=== PATIENT | female | born 1940 | race African-American/Black ===

== ENCOUNTER 2021-03-10 08:39 | Outpatient (CLI) | payer MEDICARE ==
[~2021-03-10] VITALS: Ht 165.1 cm; Wt 75.0 kg
[2021-03-10] VITALS (9 sets, daily range): BP systolic 137–165; BP diastolic 71–85
[~2021-03-10 08:39] MED LIST: ASPI-630 PO; CITA10TA5 PO; CLOP75TA PO; FURO20TA3 PO; HYDR12.575 PO; IBUP-1027 PO; LIDOCAINE WITH 8.4% SOD BICARB 3 ML DISP.SYRIN. ONE; LIPITOR80 MG PO; LOSA-73 PO; METO50TA4 PO; SPIR25TA5 PO
[2021-03-10 09:15] LABS: BASO # 0.1 x10^3/uL (0.0-0.2); BASO % 0 % (0-3); EOS # 0.1 x10^3/uL (0.0-0.7); EOS % 1 % (0-3); HEMATOCRIT 30.5 % (36.0-47.0); LYMPH # 1.2 x10^3/uL (1.0-4.8); LYMPH % 7 % (24-48); MEAN CORPUSCULAR HEMOGLOBIN 25 pg (25-35); MEAN CORPUSCULAR HGB CONC 33 g/dL (31-37); MEAN CORPUSCULAR VOLUME 78 fL (79-100); MONO # 2.2 x10^3/uL (0.0-1.1); MONO % 12 % (0-9); NEUT % 81 % (31-73); PLATELET COUNT 437 x10^3/uL (140-400); RED BLOOD COUNT 3.92 x10^6/uL (3.50-5.40); RED CELL DISTRIBUTION WIDTH 16.5 % (11.5-14.5); WHITE BLOOD COUNT 18.6 x10^3/uL (4.0-11.0)
[2021-03-10 09:25] LABS: PROTHROMBIN TIME PATIENT 15.6 SEC (11.7-14.0)
[2021-03-10 09:35] LABS: CALCIUM 9.1 mg/dL (8.5-10.1); CREATININE 0.8 mg/dL (0.6-1.0); GFR 83.7
[2021-03-10 09:52] LABS: % BANDS 2 % (0-9); % LYMPHS 5 % (24-48); % MONOS 7 % (0-10); % SEGS 86 % (35-66); NUCLEATED RBC 1
[2021-03-10 09:53] LABS: PLT ESTIMATE INCREASED (ADEQUATE); POLYCHROMASIA OCCASIONAL; TARGET CELLS FEW
[2021-03-10] MEDS ORDERED: MIDAZOLAM HCL/PF 2 MG/2 ML VIAL. ONE (10:05)
[2021-03-10] MEDS ORDERED: fentaNYL PF VIAL 100 MCG/2 ML VIAL ONE (10:05)
[2021-03-10] MEDS ORDERED: MIDAZOLAM HCL/PF 2 MG/2 ML VIAL. IV ONE (10:30)
[2021-03-10] MEDS ORDERED: LIDOCAINE WITH 8.4% SOD BICARB 3 ML DISP.SYRIN. IJ ONE (10:30)
[2021-03-10] MEDS ORDERED: fentaNYL PF VIAL 100 MCG/2 ML VIAL IV ONE (10:30)
--- NOTE | 2021-03-10 11:47 | RAD ---
EXAM: Chest, single view. HISTORY: Lung biopsy. COMPARISON: CT obtained on the same date FINDINGS: There is a left upper lobe mass with suspected associated postobstructive infiltrate. There is suspected bilateral lower lobe atelectasis. There is a 1.6 cm right lower lobe pulmonary nodule, better characterized on the CT performed on the same date. There is no convincing pneumothorax or ple ural effusion. The heart is normal in size. IMPRESSION: 1. Left upper lobe mass with postobstructive infiltrate. Correlate with pathology findings correspond ing with biopsy of this lesion on the same date. No pneumothorax is seen. 2. Suboptimal evaluation of a known right lower lobe nodule. This better characterized on the CT obta ined on the same date. This can be assessed with PET/CT, if not previously performed. 3. Bilateral lower lobe atelectasis. Electronically signed by: Deyanira Maya MD (03/10/2021 11:45 AM) [id number]
--- NOTE | 2021-03-10 12:18 | NUR ---
Discharge Note: GERALDINE OTERO Discharge instructions and discharge home medications reviewed with patient and a copy given. All questions have been answered and understanding verbalized. The following instructions and handouts were given: adult moderate sedation & lung biopsy Discontinued lines and drains: Peripheral IV intact. Patient discharged to Home or Self Care withFamily Membervia Wheelchair
--- NOTE | 2021-03-10 12:58 | RAD ---
CT-guided biopsy, left upper lobe lung mass INDICATION: Left upper lobe lung mass. Concerning for primary lung cancer versus metastatic disease. History of breast cancer.. Consent: The procedure was explained in its entirety to the patient or the patients designated repres entative by a member of the treatment team, including a discussion of the risks, benefits and commonl y accepted alternatives to the procedure, as well as the expected consequences of no therapy whatsoev er. Discussion of the risks included, but was not limited to, those that are most frequent and thos e that are rare but possibly severe or life-threatening, as well as the possibility of unforeseen com plications. Procedural details: Patient was brought to the CT scanner and placed in the supine position. Procedur es performed. 1% lidocaine was administered for local anesthesia. CT imaging demonstrates a large mas s in the left upper lung eroding to the chest wall, with destructive changes in the involved ribs, an d likely invasion of the deep pectoral musculature. A 17-gauge needle was advanced to the periphery o f the mass and core biopsy samples were obtained. The needle was removed. Manual pressure was held. N o immediate complications were identified. Repeat imaging demonstrates no pneumothorax or other compl ication. Sedation: The procedure was performed under conscious sedation including continuous cardiopulmonary m onitoring via a dedicated sedation nurse. Yupj-ii-iact sedation time:: 14 minutes IMPRESSION: CT-guided biopsy, left upper lung and chest wall mass CT DOSING PQRS STATEMENT: One or more of the following individualized dose reduction techniques were utilized for this examinat ion: 1. Automated exposure control 2. Adjustment of the mA and/or kV according to patient size 3. Use of iterative reconstruction technique Electronically signed by: William Mckeon MD (03/10/2021 12:55 PM) [id number]
--- NOTE | 2021-03-14 17:32 | PATHOLOGY ---
[facility] Accession Number: [id number] . 01 Material submitted: . lung - LEFT LUNG MASS CORE BIOPSY. Modifiers: left . 01 Clinical history: . LEFT LUNG MASS LEFT LUNG BIOPSY . 02 Diagnosis: Lung tissue, left lung mass core biopsy: - SQUAMOUS CELL CARCINOMA, MODERATELY DIFFERENTIATED. SEE COMMENT. (JPM:fritz; 03/13/2021) QMS 03/14/2021 0912 Local . 02 Comment: Sections of the left lung mass core biopsy show extensive replacement of lung parenchyma by a malignant epithelial neoplasm. The malignant cells are present in irregular solid nests and are associated with a reactive desmoplastic stroma. The tumor shows no evidence of acinar formation. The tumor cells have a polygonal shape and possess modest to focally abundant amounts of pale to eosinophilic cytoplasm. The tumor cells possess enlarged, rounded to ovoid nuclei possessing small to focally prominent nucleoli and showing moderate to focal marked nuclear pleomorphism. There are mitotic figures present. There is focal tumor necrosis. A panel of immunoperoxidase stains is obtained on A1 and yields the following results: . CK5/6: Tumor cells positive p40: Tumor cells positive p63: Tumor cells positive Cytokeratin 7: Tumor cells positive TTF-1: Tumor cells negative Napsin A: Tumor cells negative . The morphologic and immunophenotypic findings are supportive of the diagnosis of squamous cell carcinoma, moderately differentiated. The case is also examined by Dr. Urban, who concurs with the diagnosis. The results are reported to Dr. Henry on 03/14/2021 at 9:10 AM. (JPM:fritz; 03/13/2021) . . Special stains performed: Immunoperoxidase stains for p40, p63, CK5/6, CK7, TTF-1 and napsin A on A1 . 02 Electronically signed: . Graham Alba MD, Pathologist NPI- [id number] . 01 Gross description: . The specimen is received in formalin, labeled "Radha Oseguera, left lung bx". Received is a single needle core of pale white to red-brown tissue measuring 1.8 cm in length by 0.1 cm in diameter. The specimen is submitted entirely in A1. ([facility]; 03/10/2021) NRI/NRI 03/10/[address] [place] [address] . 02 Pathologist provided ICD-10: C34.92 . 02 CPT . 137242, [id number], [id number] Specimen Comment: A courtesy copy of this report has been sent to [phone], [phone] Specimen Comment: [id number] Specimen Comment: Report sent to / DR HERNY Performed at: 01 [facility] [address] [facility] [address], [place] [id number] MD Jeff Urban MD Phone: [phone] Performed at: 02 [facility] [address] [place], [place] [id number] MD Graham Alba MD Phone: [phone]
== END 2021-03-10 12:30 | disposition home or self-care (01) ==
LOC: INTRAD 08:39
PROVIDERS: ATTEND Internal Medicine Pulmonary Disease
DX: R91.8 Other nonspecific abnormal finding of lung field (principal); C34.92 Malignant neoplasm of unspecified part of left bronchus or lung; I10 Essential (primary) hypertension; J44.9 Chronic obstructive pulmonary disease, unspecified; M19.90 Unspecified osteoarthritis, unspecified site; F17.210 Nicotine dependence, cigarettes, uncomplicated; Z79.82 Long term (current) use of aspirin; Z79.899 Other long term (current) drug therapy; Z88.0 Allergy status to penicillin
CPT/HCPCS: 32408; 36415; 71045; 80048; 85007; 85025; 85610; 99152; J2250; J3010; J3490; 88305; 88341; 88342